=== PATIENT | female | born 1960 | race Caucasian/White ===

== ENCOUNTER → 2023-09-14 | Outpatient (CLI) | payer OTHER, SELFPAY ==
--- NOTE | 2023-09-14 11:20 | RAD_ITS ---
STUDY: X-RAY - ABDOMEN/PELVIS REASON FOR EXAM: Female, 62 years old. L kidney stone TECHNIQUE: Single AP view of the abdomen / pelvis. COMPARISON: None. FINDINGS: Normal visualized lung bases. Probable small gallstones. There is an unremarkable bowel gas pattern. 9 Millimeter radiodensity left upper quadrant. The visualized liver, spleen and kidneys are grossly normal in size and morphology. Normal soft tissue structures. Normal visualized osseous structures. RAD/Abdomen Single View IMPRESSION: [Left Nephrolith. Gallstones. Electronically Signed: Miguel Vazquez MD at 17:51 EST ,
== END | disposition home or self-care (01) ==
PROVIDERS: PCP Physician Assistant; Referring Provider Urology; Visit Provider Urology
DX: N20.0 Calculus of kidney (principal)
CPT/HCPCS: 74018

== ENCOUNTER 2023-11-11 10:05 | Day surgery (SDC) | payer MEDICARE, OTHER, SELFPAY ==
[2023-11-03 15:59] LABS: Hematocrit 39.1 % (37-47); Hemoglobin 12.7 g/dL (12.0-15.0); Mean Corp Hgb Conc 32.5 g/dL (32-36); Mean Corpuscular Hgb 28.5 pg (27.0-32.0); Mean Corpuscular Volume 87.7 fL (81-99); Mean Platelet Vol. 10.7 fl (6.2-12.0); Platelet Count 217 K/mm3 (150-450); RBC Distribution Width CV 12.8 % (11.6-14.6); RBC Distribution Width SD 41.1 fl (35.1-43.9); Red Blood Count 4.46 M/mm3 (4.2-5.4)
[2023-11-03 16:19] LABS: Anion Gap 6 (5-15); BUN 11 mg/dL (7-18); BUN/Creat Ratio 13.2 RATIO (10-20); Chloride 108 mmol/L (98-107); Creatinine, Serum 0.84 mg/dL (0.55-1.02); EST Glomerular Filtration Rate 73 mL/min (>60); Est Glom Filt Rate - Afr Amer 88 mL/min (>60); Glucose 97 mg/dL (74-106); Potassium 3.6 mmol/L (3.5-5.1); Sodium Level 141 mmol/L (136-145)
[2023-11-11] VITALS (7 sets, daily range): BP systolic 125–161; BP diastolic 71–113; PULSE 79–89; RESP 16–18; TEMP 35.9–36.9; O2SAT 96–98; BMI 34.6
[2023-11-11] MEDS: Lactated Ringers 1,000 ML 15 ML IV (10:41)
[2023-11-11] MEDS: Cefazolin 2 GM in 0.9% Normal Saline (100mL Bag) 100 ML IV (11:50)
--- NOTE | 2023-11-11 12:45 | DCINST_ITS ---
Discharge Instructions Diet Discharge Diet: No restrictions Activity Discharge Activity: Return to Normal Activity Dressing / Incision Call your doctor if you observe: Fever of 101 or Higher, Inability to urinate and Inability to have a bowel movement Follow Up Care Please Follow Up With: Shayna Calvert MD When: The office will call to make arrangements for follow-up in 2 to 3 weeks with a KUB Test Results: Test results from this visit will be discussed in further detail at your follow- up appointment, if applicable. Discharge Plan Admission Attending Provider: Shayna Calvert Primary Care Provider: Crystal Yanez Discharge Orders/Prescriptions Prescriptions: New phenazopyridine [Pyridium] 200 mg tablet 200 mg PO TID PRN PRN (Reason: Bladder Spasms) 7 Days Qty: 30 0RF oxycodone-acetaminophen [Percocet] 5-325 mg tablet 1 tab PO Q8H PRN (Reason: pain) 3 Days Qty: 10 0RF cephalexin [cephalexin] 500 mg capsule 500 mg PO Q12 3 Days Qty: 6 0RF ondansetron 4 mg tablet,disintegrating 4 mg PO Q8H PRN (Reason: nausea and vomiting) Qty: 10 0RF Continued omeprazole 20 mg capsule,delayed release(DR/EC) 20 mg PO DAILY pravastatin 10 mg tablet 10 mg PO QHS cholecalciferol (vitamin D3) [Vitamin D3] 50 mcg (2,000 unit) capsule 50 mcg PO DAILY ibuprofen [IBU] 400 mg tablet 400 mg PO Q8H PRN (Reason: pain) Premarin 0.625 mg tablet 0.625 mg PO PRN PRN (Reason: vaginal irritation) clobetasol 0.05 % cream 1 applic topical DAILY PRN (Reason: itching) Referrals / Follow Up: Crystal Yanez PA [Primary Care Provider] - Disposition Disposition (needs filled in before D/C Order can be placed): Home, Self Care
--- NOTE | 2023-11-11 12:48 | PCM.OPRPT ---
Report of Operation Date of Procedure: 11/11/23 Pre-Operative Diagnosis: Left renal stone Post-Operative Diagnosis: Same Surgery/Procedure Performed:: Cystoscopy, left ureteral stent insertion, left renal extracorporal shockwave lithotripsy Surgeon: Shayna Calvert Type of Anesthesia: General Description of Procedure: The patient is a 63-year-old female here for management of a large left renal stone. Informed consent was obtained. She was taken the operating room and placed on the operating room table. Anesthesia monitored the head, neck, airway, IV access and vital signs throughout the case. Once anesthesia was appropriately administered, she was placed into dorsolithotomy position was prepped and draped in usual sterile fashion. The cystoscope was inserted through the urethra under direct visualization into the urinary bladder. There is no mass, erythema ulceration or foreign body identified. The left ureteral orifice was carefully intubated with a 0.035 Glidewire. A 6 [place] 26 cm JJ stent was placed over the wire with good positioning in the renal pelvis as well as the urinary bladder. The bladder was emptied and the cystoscope was removed. She was repositioned on the table. 3000 shocks were then applied to the large left renal stone which appeared to be fragmented at the conclusion of the case. She was awakened and taken to the recovery room in good condition. There were no complications during this procedure. Grafts/Implants Used: 6 x 26 JJ stent Complications None Admit VTE Documentation VTE Present on Admission: Yes VTE Mechan Device Prophylaxis: SCD's VTE Pharm Prophylaxis ordered?: No Reason prophylaxis not ordered:: Treatment Not Indicated
[2023-11-11] MEDS: Ketorolac 15 MG/ML Vial IM (13:50)
== END 2023-11-11 14:35 | disposition home or self-care (01) ==
LOC: SDC 10:07 → AC 10:09
PROVIDERS: PCP Physician Assistant; Referring Provider Urology; Visit Provider Urology
PROC: (CPT 50590; principal; 2023-11-11 11:40)
DX: N20.0 Calculus of kidney (principal); G47.30 Sleep apnea, unspecified; N32.81 Overactive bladder; N39.46 Mixed incontinence; R35.1 Nocturia; E55.9 Vitamin D deficiency, unspecified; E78.00 Pure hypercholesterolemia, unspecified; Z79.899 Other long term (current) drug therapy; Z87.891 Personal history of nicotine dependence
CPT/HCPCS: 52332; 50590; 00910; 36415; 80048; 85027; J7120; C2617; J2405

== ENCOUNTER → 2023-12-01 | Outpatient (CLI) | payer MEDICARE, OTHER, SELFPAY ==
--- NOTE | 2023-12-01 13:06 | RAD_ITS ---
STUDY: X-RAY - ABDOMEN/PELVIS REASON FOR EXAM: Female, 63 years old. CALC OF KIDNEY TECHNIQUE: Single AP view of the abdomen / pelvis. COMPARISON: 09/14/2023 FINDINGS: Interval placement of left ureteral stent. There is an unremarkable bowel gas pattern. 8 mm calcific opacity projecting over lower pole left kidney adjacent to the proximal pigtail of the stent consistent with a renal stone. No definite ureteral stone. Normal soft tissue structures. Normal visualized osseous structures. RAD/Abdomen Single View IMPRESSION: 1. Interval placement of left ureteral stent. 2. Left renal stone. No definite ureteral stone. Electronically Signed: Swapnil Garibay MD at 20:20 EDT ,
== END | disposition home or self-care (01) ==
LOC: MTRAD 13:05
PROVIDERS: PCP Physician Assistant; Referring Provider Urology; Visit Provider Urology
DX: N20.0 Calculus of kidney (principal)
CPT/HCPCS: 74018

== ENCOUNTER → 2023-12-10 | Outpatient (CLI) | payer MEDICARE, OTHER, SELFPAY | END | disposition home or self-care (01) | LOC: SDC 04-18 08:48 | PROVIDERS: PCP Physician Assistant; Referring Provider Urology; Visit Provider Urology | DX: Z01.818 Encounter for other preprocedural examination (principal) ==

== ENCOUNTER → 2023-12-27 | Outpatient (CLI) | payer MEDICARE, OTHER, SELFPAY ==
--- NOTE | 2023-12-27 11:07 | RAD_ITS ---
STUDY: X-RAY - ABDOMEN/PELVIS REASON FOR EXAM: Female, 63 years old. STONES TECHNIQUE: Single AP view of the abdomen / pelvis. COMPARISON: Comparison is made with prior examination dated December 01, 2023. FINDINGS: Normal visualized lung bases. There is an unremarkable bowel gas pattern. A left-sided double-J stent catheter is seen with the proximal tip in the lower pole calyx of the left kidney and distal tip in the left side of the urinary bladder. The previously seen left intrarenal calculus as decreased in size most likely secondary to prior lithotripsy. Linear densities are seen in the mid and lower pole calyces of the left kidney. Gallstones. Normal soft tissue structures. There are diffuse degenerative changes of the visualized lumbar spine. RAD/Abdomen Single View IMPRESSION: Interval decrease in size of the previously seen left intrarenal calculi due to prior lithotripsy. Gallstones. Electronically Signed: Pablo Galicia MD at 13:00 EDT ,
== END | disposition home or self-care (01) ==
LOC: MTRAD 11:06
PROVIDERS: PCP Physician Assistant; Referring Provider Urology; Visit Provider Urology
DX: N20.0 Calculus of kidney (principal)
CPT/HCPCS: 74018